=== PATIENT | female | born 1940 | race Caucasian/White ===

== ENCOUNTER 2017-03-17 07:38 | Day surgery (SDC) | payer MEDICARE, BC ==
[~2017-03-17 07:38] MED LIST: Buffered Lidocaine 1% SYRIN* 5 ML/SYR SYRINGE INTRADERM ONE; Sodium Citrate/Citric Acid* 15 ML UDC PO ONE
[2017-03-17] MEDS ORDERED: Sodium Citrate/Citric Acid* 15 ML UDC ONE (08:01)
[2017-03-17] MEDS ORDERED: Buffered Lidocaine 1% SYRIN* 5 ML/SYR SYRINGE ONE (08:02)
[2017-03-17] MEDS ORDERED: Lidocaine 2% PF * 5 ML VIAL ONE (08:58)
[2017-03-17] MEDS ORDERED: fentaNYL* 50 MCG/ML 2 ML VIAL (100 MCG VIAL) ONE ×2 (08:58→10:50)
[2017-03-17] MEDS ORDERED: Propofol* 10 MG/ML 20 ML BTL IV PUSH ONE (08:58)
[2017-03-17] MEDS ORDERED: Ondansetron INJ* 2 MG/ML VIAL IV PRN (09:30)
[2017-03-17] MEDS ORDERED: fentaNYL* 50 MCG/ML 2 ML VIAL (100 MCG VIAL) IV PRN (09:30)
[2017-03-17] MEDS ORDERED: Dexamethasone IV* 4 MG/ML 1 ML (4 MG) ONE (09:45)
[2017-03-17] MEDS ORDERED: Ketorolac INJ* 30 MG/ML 1 ML VIAL ONE (09:45)
[2017-03-17 11:33] VITALS: BP 136/60
[2017-03-17] MEDS ORDERED: Tetracaine 0.5% OPTH.SOL 4 ML* 1 DROP BTL ONE (13:00)
[2017-03-17] MEDS ORDERED: Neomycin/Polymy/Dex OPHTH.OIN* 3.5 GM ONE (13:00)
--- NOTE | 2017-03-17 14:39 | OP ---
OPERATIVE REPORT: DATE OF OPERATION: 03/17/17 - [facility] DATE OF : 42 SURGEON: Sergio Perales MD FIRE HOSE CURER: None. ANESTHESIA: General. 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 OPERATIVE PROCEDURE: Advanced right inferior rectus muscle. COMPLICATIONS: None. ESTIMATED BLOOD LOSS: Minimal. DESCRIPTION OF PROCEDURE: The patient was brought to the operating room and received general anesthesia without any complications. A drop of tetracaine and a drop of phenylephrine were placed in her right eye. The patient's eye was prepped and draped in the usual sterile fashion for ophthalmic surgery. A speculum was placed in the right eye and forced ductions were performed. These appeared normal. The inferior conjunctiva was noted to have been previously operated on with some scarring and very small symblepharon. An incision to the conjunctiva was made in the infratemporal quadrant and sharp and blunt dissection was performed in order to access the inferior rectus muscle. The muscle was then grasped on a small muscle hook. This was then replaced with a large muscle hook. Further sharp and blunt dissection of the conjunctiva and scar tissue was performed until the inferior rectus muscle was well visualized. Hemostasis was achieved with cauterization or gentle pressure as needed. A Vishnu muscle clamp was placed across the inferior rectus muscle. The inferior rectus muscle was disinserted from the globe. A caliper was used to measure 0.3 mm anterior to where the muscle had been attached. The Vishnu muscle clamp was elevated and a double-armed 6-0 Vicryl suture was woven into the muscle at its distal end and locked at either side. The muscle clamp was removed. The muscle, still intact on the sutures, was inspected and found to be without bleeding. The muscle was then advanced to the newly made marely. The sutures were tied securely. After trimming the sutures, the conjunctiva was closed with interrupted 6-0 gut suture. At the end of the case, forced ductions continued to appear normal and there was no active bleeding. The eye was cleaned and a drop of tetracaine was placed in it. A Maxitrol ointment was placed in the surface of the eye. The patient was awakened uneventfully and sent to the recovery room in stable condition with postop instructions and a followup appointment given. [id number]/[facility] #: [id number]
== END 2017-03-17 11:45 | disposition home or self-care (01) ==
LOC: OREAST 07:38
PROVIDERS: ATTEND Ophthalmology
DX: H50.21 Vertical strabismus, right eye (principal); E78.5 Hyperlipidemia, unspecified; R00.1 Bradycardia, unspecified
CPT/HCPCS: A9270-GY; J1100; J1885; J2704; J3010